=== PATIENT | male | born 1980 | race Two or more races ===

== ENCOUNTER 2023-10-12 14:06 | Inpatient (IN) | payer OTHER ==
[~2023-10-12] VITALS: Ht 177.8 cm; Wt 90.7 kg
--- NOTE | 2023-10-12 15:23 | NUR ---
PTE ALERTA Y ORIENTADO X3, SE LE SUZI S/V. PTE REFIERE TENER DOLOR ABDOMINAL DESDE HACE DOS SEMANAS. SE UBICA EN LUCIO EN AREA DE OBSERVACION.
[2023-10-12] MEDS ORDERED: MEPERIDINE HCL/PF 50 MG/ML VIAL IM STA ×2 (16:21→16:42)
[2023-10-12] MEDS ORDERED: PROMETHAZINE HCL 50 MG/ML AMPUL IM STA (16:22)
[2023-10-12] MEDS ORDERED: PIPERACILLIN/TAZOBACTAM SODIUM 3.375 GM VIAL IV STA (16:26)
--- NOTE | 2023-10-12 16:44 | NUR ---
SE EDUCA A PTE SOBRE TX MEDICO ASIA REFIERE ENTENDER, SE SUZI MUESTRAS DE LABORATORIO UTILIZANDO MEDIDAS ASEPTICAS. SE COLOCA H/L ANNIKA DE EDEMA. SE ADMINSITRAN MEDICAMENTOS LOS CUALES [place]OLERA. SE NOTIFICA ESTUDIOS DE RX Y SONOGRAFIA PENDIENTES A REALIZAR.
[2023-10-12 16:49] LABS: HEMATOCRIT 47.9 % (39.0-48.0); HEMOGLOBIN 16.3 g/dL (13-16.00); MEAN CELL VOLUME 93.7 fL (80.0-100.00); MEAN CORPUSCULAR HGB CONC 34.1 g/dl (32.0-36.0); PLATELET COUNT 250 K/uL (150-450); RED BLOOD COUNT 5.11 M/uL (4.00-6.00); RED CELL DISTRIBUTION WIDTH 14.6 % (11.5-14.5)
[2023-10-12 16:59] LABS: PH,URINE 5.5 (5.0-8.0); URINE APPEARANCE Clear; URINE BILIRRUBIN Moderate (NEGATIVE); URINE BLOOD Negative; URINE COLOR Dark Yellow; URINE GLUCOSE Negative (NEGATIVE); URINE LEUKOCYTE Small; URINE NITRATE Positive; URINE PROTEIN Negative (NEGATIVE)
[2023-10-12 17:00] LABS: URINE BACTERIA 23.9 uL (0.0-1933); URINE EPITHELIAL CELLS 9.5 uL (0.0-38.8); URINE WBC 4.9 uL (0.0-23.2)
[2023-10-12 17:20] LABS: INR 1.06; PARTIAL THROMBOPLASTIN TIME 27.3 SECONDS (22.0-34.0); PROTHROMBIN TIME 11.1 SECONDS (9.0-11.5)
[2023-10-12 17:24] LABS: ALBUMIN 3.8 gm/dL (3.4-5.0); BILIRUBIN TOTAL 3.19 mg/dL (0.3-1.2); BILIRUBIN,CONJUGATED 2.37 mg/dL (0.0-0.2); BILIRUBIN,UNCONJUGATED 0.82 mg/dL (0.0-0.6); CALCIUM 9.8 mg/dL (8.5-10.1); CREATININE SERUM 0.9 mg/dL (0.70-1.30); GFR 92.1; POTASSIUM 3.51 mEq/L (3.5-5.1); TOTAL PROTEIN 7.4 gm/dL (6.4-8.2)
[2023-10-12] MEDS ORDERED: MEPERIDINE HCL/PF 25 MG/ML VIAL IM PRN (20:00)
[2023-10-12] MEDS ORDERED: 0.9 % SODIUM CHLORIDE 1,000 ML IV SCH (20:00)
[2023-10-12] MEDS ORDERED: HYOSCYAMINE SULFATE 0.125 MG TAB.SUBL PO ONE (20:00)
[2023-10-12] MEDS ORDERED: ONDANSETRON HCL 4 MG in 0.9 % SODIUM CHLORIDE 50 ML IV PRN (20:00)
[2023-10-12] MEDS ORDERED: ACETAMINOPHEN 500 MG GEL..CAP PO PRN (20:00)
[2023-10-13] MEDS ORDERED: PIPERACILLIN/TAZOBACTAM SODIUM 3.375 GM in DEXTROSE 5 % IN WATER 100 ML IV SCH
[2023-10-13] MEDS ORDERED: FAMOTIDINE/PF 20 MG in 0.9 % SODIUM CHLORIDE 8 ML IV PUSH SCH (09:00)
[2023-10-14 08:52] LABS: HEMATOCRIT 44.3 % (39.0-48.0); HEMOGLOBIN 15.2 g/dL (13-16.00); MEAN CELL VOLUME 92.8 fL (80.0-100.00); MEAN CORPUSCULAR HEMOGLOBIN 31.8 pg (27.00-32.0); MEAN CORPUSCULAR HGB CONC 34.3 g/dl (32.0-36.0); PLATELET COUNT 215 K/uL (150-450); RED BLOOD COUNT 4.78 M/uL (4.00-6.00); RED CELL DISTRIBUTION WIDTH 15.1 % (11.5-14.5)
[2023-10-14 09:00] LABS: BILIRUBIN TOTAL 2.16 mg/dL (0.3-1.2); BILIRUBIN,CONJUGATED 1.2 mg/dL (0.0-0.2); BILIRUBIN,UNCONJUGATED 0.96 mg/dL (0.0-0.6)
[2023-10-14 10:44] LABS: ALBUMIN 3.1 gm/dL (3.4-5.0); BILIRUBIN TOTAL 2.07 mg/dL (0.3-1.2); BILIRUBIN,CONJUGATED 1.15 mg/dL (0.0-0.2); BILIRUBIN,UNCONJUGATED 0.92 mg/dL (0.0-0.6); CALCIUM 8.5 mg/dL (8.5-10.1); CREATININE SERUM 0.93 mg/dL (0.70-1.30); GFR 88.68; POTASSIUM 3.71 mEq/L (3.5-5.1); TOTAL PROTEIN 6.1 gm/dL (6.4-8.2)
[2023-10-14] MEDS ORDERED: LIDOCAINE HCL 1%/Epi 20ML VIAL IJ ONE ×2 (11:33→12:45)
[2023-10-14] MEDS ORDERED: BUPIVACAINE HCL/PF 0.5% 30ML ML ONE (11:33)
[2023-10-14] MEDS ORDERED: ONDANSETRON HCL 2 MG/ML VIAL IV ONE ×2 (12:30)
[2023-10-14] MEDS ORDERED: MORPHINE SULFATE 4 MG in 0.9 % SODIUM CHLORIDE 9 ML IV PRN (12:30)
[2023-10-14] MEDS ORDERED: MEPERIDINE HCL/PF 25 MG/ML VIAL IV PRN ×2 (12:30)
[2023-10-14] MEDS ORDERED: BUPIVACAINE HCL/PF 0.5% 30ML ML IJ ONE (12:45)
[2023-10-14] MEDS ORDERED: MORPHINE SULFATE 4 MG/ML CARTRIDGE IV PRN (13:30)
[2023-10-14] MEDS ORDERED: ONDANSETRON HCL 2 MG/ML VIAL IV PRN (13:30)
[2023-10-14] MEDS ORDERED: DEXTROSE 50 % IN WATER 0.5 G/ML DISP.SYRIN IV PRN (13:30)
[2023-10-14] MEDS ORDERED: 0.9 % SODIUM CHLORIDE 1,000 ML IV SCH (13:30)
[2023-10-14] MEDS ORDERED: OxyCODONE HCL 5 MG TABLET (ROXICODONE) PO PRN (13:30)
[2023-10-14] MEDS ORDERED: ACETAMINOPHEN 500 MG GEL..CAP PO SCH (14:00)
[2023-10-14 15:12] LABS: HEMATOCRIT 43.2 % (39.0-48.0); HEMOGLOBIN 14.9 g/dL (13-16.00); MEAN CELL VOLUME 94.1 fL (80.0-100.00); MEAN CORPUSCULAR HEMOGLOBIN 32.5 pg (27.00-32.0); MEAN CORPUSCULAR HGB CONC 34.6 g/dl (32.0-36.0); PLATELET COUNT 211 K/uL (150-450); RED BLOOD COUNT 4.59 M/uL (4.00-6.00)
[2023-10-14 15:28] LABS: ALBUMIN 3.2 gm/dL (3.4-5.0); CALCIUM 8.3 mg/dL (8.5-10.1); CREATININE SERUM 0.83 mg/dL (0.70-1.30); GFR 101.12; MAGNESIUM 1.8 mg/dL (1.8-2.4); POTASSIUM 3.8 mEq/L (3.5-5.1)
[2023-10-14] MEDS ORDERED: INSULIN LISPRO 1,000 UNIT/10 ML UNITS SUBCUTANEO SCH (16:00)
[2023-10-14] MEDS ORDERED: HYOSCYAMINE SULFATE 0.125 MG TAB.SUBL ONE (16:39)
[2023-10-14] MEDS ORDERED: GABAPENTIN 300 MG CAPSULE PO ONE (16:39)
[2023-10-14] MEDS ORDERED: HYOSCYAMINE SULFATE 0.125 MG TAB.SUBL SL SCH (17:00)
[2023-10-14] MEDS ORDERED: GABAPENTIN 300 MG CAPSULE PO SCH (17:00)
[2023-10-14] MEDS ORDERED: POLYETHYLENE GLYCOL 3350 17 GM BLIST.PACK PO SCH (17:00)
[2023-10-14] MEDS ORDERED: FAMOTIDINE/PF 20 MG/2 ML VIAL IV PUSH SCH (21:00)
[2023-10-15 06:21] LABS: HEMATOCRIT 44.4 % (39.0-48.0); MEAN CELL VOLUME 93.6 fL (80.0-100.00); MEAN CORPUSCULAR HEMOGLOBIN 31.7 pg (27.00-32.0); MEAN CORPUSCULAR HGB CONC 33.8 g/dl (32.0-36.0); PLATELET COUNT 227 K/uL (150-450); RED BLOOD COUNT 4.74 M/uL (4.00-6.00); RED CELL DISTRIBUTION WIDTH 15.3 % (11.5-14.5)
[2023-10-15 06:49] LABS: BILIRUBIN TOTAL 2.02 mg/dL (0.3-1.2); CALCIUM 8.4 mg/dL (8.5-10.1); CREATININE SERUM 0.91 mg/dL (0.70-1.30); GFR 90.93; GLOBULINA 3.1 G/DL (2.4-3.5); PHOSPHOROUS 2.7 mg/dL (2.5-4.9); POTASSIUM 4.15 mEq/L (3.5-5.1); TOTAL PROTEIN 6.1 gm/dL (6.4-8.2)
[2023-10-15 13:07] LABS: hav igm Negative (Negative); hcv Non Reactive (Non Reactive); hep b c Negative (Negative)
[2023-10-15] MEDS ORDERED: ENOXAPARIN SODIUM 40 MG/0.4 ML SYRINGE SUBCUTANEO SCH (17:00)
[2023-10-16] MEDS ORDERED: ENOXAPARIN SODIUM 40 MG/0.4 ML SYRINGE SUBCUTANEO SCH (09:00)
[2023-10-16 10:09] LABS: ALBUMIN 2.9 gm/dL (3.4-5.0); BILIRUBIN TOTAL 1.81 mg/dL (0.3-1.2); BILIRUBIN,CONJUGATED 1.04 mg/dL (0.0-0.2); BILIRUBIN,UNCONJUGATED 0.77 mg/dL (0.0-0.6); CALCIUM 8.5 mg/dL (8.5-10.1); CREATININE SERUM 0.69 mg/dL (0.70-1.30); GFR 125.14; POTASSIUM 4.04 mEq/L (3.5-5.1); TOTAL PROTEIN 5.9 gm/dL (6.4-8.2)
[2023-10-16 10:35] LABS: HEMATOCRIT 41.4 % (39.0-48.0); MEAN CELL VOLUME 93.1 fL (80.0-100.00); MEAN CORPUSCULAR HEMOGLOBIN 31.6 pg (27.00-32.0); MEAN CORPUSCULAR HGB CONC 33.9 g/dl (32.0-36.0); PLATELET COUNT 206 K/uL (150-450); RED BLOOD COUNT 4.45 M/uL (4.00-6.00); RED CELL DISTRIBUTION WIDTH 15.1 % (11.5-14.5)
[2023-10-16] MEDS ORDERED: PEPCID AC20 MG PO (14:20)
[2023-10-16] MEDS ORDERED: TRAM1TAB98 PO (14:20)
[2023-10-16] MEDS ORDERED: AMOX1TAB5 PO (14:20)
== END 2023-10-16 16:13 | disposition home or self-care (01) | DRG 419 ==
LOC: ER 14:06 → MEDI 20:05 → SEC-K 20:05 → MEDI 20:49 → SURH 10-14 16:16
PROVIDERS: General Practice; Internal Medicine Infectious Disease; Surgery; ADMIT Internal Medicine; ATTEND Internal Medicine
PROC: BW40ZZZ Ultrasonography of Abdomen (ICD-10-PCS; 2023-10-12)
PROC: BF37ZZZ Magnetic Resonance Imaging (MRI) of Pancreas (ICD-10-PCS; 2023-10-13)
PROC: BF502Z0 Other Imaging of Bile Ducts using Fluorescing Agent, Intraoperative (ICD-10-PCS; 2023-10-14)
PROC: 0FT44ZZ Resection of Gallbladder, Percutaneous Endoscopic Approach (ICD-10-PCS; principal; 2023-10-14 11:00)
DX: K80.00 Calculus of gallbladder with acute cholecystitis without obstruction (principal); R59.0 Localized enlarged lymph nodes; I10 Essential (primary) hypertension